=== PATIENT | female | born 2000 | race African-American/Black ===

== ENCOUNTER 2020-07-02 19:44 | Emergency (ER) | payer OTHER ==
[~2020-07-02] VITALS: Ht 172.7 cm; Wt 68.0 kg
[~2020-07-02 19:44] MED LIST: ACYCLOVIR 400400 MG PO; AUGMENTIN 500-1 EACH PO; CEPACOL SORE T1 EAC7 PO; FLONASE 0.05%50 MCG NASAL; MACROBID 100 M100 MG PO; MEBENDAZOLE100 MG PO; MOBIC7.5 MG PO; MUCINEX D TABL1 EAC1 PO; MUCINEX DM TABL1 TA1 PO; NAPROSYN500 MG PO; PEPCID20 MG PO; PREDNISONE 20 M20 MG PO; TORADOL 10 MG T10 MG PO; ZOFRAN ODT4 MG PO; [UNRECOGNIZED DRUG - OTHER] TP
[2020-07-02 21:05] VITALS: BP 126/90
== END 2020-07-02 21:05 | disposition home or self-care (01) ==
LOC: M.ERS 19:44
DX: R51.9 Headache, unspecified (principal); Z20.828 Contact with and (suspected) exposure to other viral communicable diseases